=== PATIENT | male | born 1975 | race Caucasian/White ===

== ENCOUNTER 2016-11-16 21:48 | Emergency (ER) | payer MEDICAID ==
[~2016-11-16] VITALS: Ht 172.7 cm; Wt 67.2 kg
[2016-11-16 21:53] VITALS: Ht 172.7 cm; Wt 67.2 kg
[2016-11-16] MEDS ORDERED: DIPHTH/TET/ACEL PERTUSS (ADULT) 0.5 ML VIAL IM* ONE (23:00)
--- NOTE | 2016-11-16 23:07 | ERD ---
ER Documentation Chief Complaint Date/Time DATE: 11/16/16 TIME: 23:05 Chief Complaint HEAD LACK TO BACK TO HEAD FROM BASKETBALL DENIES KO HPI This is a 41-year-old male who was playing basketball when he got hit in the head with a basketball. There was no loss of consciousness. No vomiting. He is initially dizzy but no longer has dizziness. No photosensitivity or visual changes. Unsure last tetanus vaccination. Sustained a laceration to the posterior scalp. ROS All systems reviewed and are negative except as per history of present illness. Medications Home Meds Reported Medications [None] No Conflict Check 07/20/10 Allergies Allergies: Coded Allergies: No Known Allergies (Verified Allergy, Mild, 11/16/16) PMhx/Soc History of Surgery: No Anesthesia Reaction: No Hx Neurological Disorder: No Hx Respiratory Disorders: No Hx Cardiac Disorders: No Hx Psychiatric Problems: No Hx Miscellaneous Medical Probl: No Hx Alcohol Use: Yes (SOCIALLY.) Hx Substance Use: No Hx Tobacco Use: Yes (QUIT 13 YRS AGO.) Smoking Status: Never smoker FmHx Family History: No diabetes Physical Exam Vitals Vital Signs Date Time Temp Pulse Resp B/P Pulse Ox O2 Delivery O2 Flow Rate FiO2 11/16/16 21:53 98.1 69 18 124/83 100 Physical Exam General: well developed, well nourished, alert, nontoxic, no distress Head: normocephalic, atraumatic Neck: Supple, nontender, no lymphadenopathy, no midline tenderness Respiratory: Clear to auscaultation bilaterally, speaks in full sentences, no use of accesory muscles or labored breathing, no rales, ronchi, or wheezing Cardiovascular: RRR, No murmurs Back: no midline tenderness, no step offs or bony abnormalities, sensation to light touch in tact Extremities: moving all extremities normally, normal gait, no edema Skin: Posterior scalp laceration approximately 2 cm Results 24 hrs Current Medications Medications (Trade) Dose Ordered Sig/Patti Route PRN Reason Start Time Stop Time Status Last Admin Dose Admin Diphtheria/ Tetanus/Acell Pertussis (Adacel) 0.5 ml ONCE ONCE IM* 11/16/16 23:00 11/16/16 23:01 DC 11/16/16 23:00 Procedures/MDM 41-year-old presents after trauma to his head. His neurological examination is normal and he did not lose consciousness and is well-appearing. He has had no nausea or vomiting. I doubt he needs a CT scan. He does have a scalp laceration which was irrigated with normal saline and then 3 carrie were placed. Patient tolerated procedure well and there were no complications. He was given a tetanus vaccination I recommended 2 day wound check in 7-10 days for removal of sutures. Recommended this patient follow up with her primary care doctor within 48 hours or return to the emergency room for any worsening of symptoms. However this time I do believe there is suitable for outpatient management. I answered all their questions and they agreed with the plan and were discharged home. Departure Diagnosis: Primary Impression: Scalp laceration Condition: Stable Patient Instructions: Laceration, Scalp Additional Instructions: Llame al doctor CARLITOS y maicol saurav RADHA PARA DENTRO DE 1-2 JADE.Dgale a la secretaria que nosotros le instruimos hacer esta radha.Avise o llame si arthur condicin se empeora antes de la radha. Regresa aqui si peor o no mejor. MARY KAY PALMER PA-C November 16, 2016 23:07
[2016-11-16 23:23] VITALS: BP 128/73; PULSE 72; RESP 16
== END 2016-11-16 23:25 | disposition home or self-care (01) ==
LOC: FTE 21:48
DX: S01.01XA Laceration without foreign body of scalp, initial encounter (principal); W21.05XA Struck by basketball, initial encounter; Y92.310 Basketball court as the place of occurrence of the external cause; Z23 Encounter for immunization; Z87.891 Personal history of nicotine dependence
CPT/HCPCS: 12001; 90471; 90715; Z7502

== ENCOUNTER 2016-11-23 14:41 | Emergency (ER) | payer MEDICAID ==
[~2016-11-23] VITALS: Ht 170.2 cm; Wt 72.0 kg
[2016-11-23 14:49] VITALS: Ht 170.2 cm; Wt 72.0 kg
--- NOTE | 2016-11-23 15:17 | ERD ---
ER Documentation Chief Complaint Date/Time DATE: 11/23/16 TIME: 15:14 Chief Complaint STAPLE REMOVAL FROM HEAD HPI 41-year-old male presented ED today for removal of the suture on his head. He has sustained laceration on the occipital area he is head on 11/16/2016. Patient reports no complications. Denies fever or chills. Denies bleeding or wound drainage. Denies pain in his head. Denies lethargy or confusion. ROS All systems reviewed and are negative except as per history of present illness. Medications Home Meds Reported Medications [None] No Conflict Check 07/20/10 Allergies Allergies: Coded Allergies: No Known Allergies (Verified Allergy, Mild, 11/16/16) PMhx/Soc History of Surgery: No Anesthesia Reaction: No Hx Neurological Disorder: No Hx Respiratory Disorders: No Hx Cardiac Disorders: No Hx Psychiatric Problems: No Hx Miscellaneous Medical Probl: No Hx Alcohol Use: Yes (SOCIALLY.) Hx Substance Use: No Hx Tobacco Use: Yes (QUIT 13 YRS AGO.) Physical Exam Vitals Vital Signs Date Time Temp Pulse Resp B/P Pulse Ox O2 Delivery O2 Flow Rate FiO2 11/23/16 14:49 98.0 59 20 119/70 100 Physical Exam General: Patient is well-developed. Awake, alert, and conversant, in no apparent distress Skin: Warm and dry Head: Normocephalic, atraumatic without palpable deformities. 3 cecilia noted in the occipital region. Eyes: Pupils equal, round, and reactive to light. Extraocular movements intact. No periorbital ecchymosis or step-off Ears: Canals patent. Tympanic membranes are clear. No hartman sign. No hemotympanum Nose/face: Atraumatic. Facial bones are nontender to palpation and stable with attempts at manipulation Neck: No midline point tenderness, step-off, or deformity to firm palpation of posterior cervical spine. Trachea midline. Carotids equal. No masses. No JVD. Full range of motion of the neck without limitation or pain Chest: No surface trauma. Nontender without crepitus or deformity. No palpable subcutaneous air. Lungs have good tidal volume, lungs clear to auscultate bilaterally Heart: Regular rate and rhythm. No murmur, rub, or gallop Extremities: No surface trauma. Full range of motion without limitation or pain. Good strength in all extremities. Sensation to light touch intact. All peripheral pulses are intact and equal Neuro: Alert and oriented 4, GCS 15, cranial nerves II through XII intact. Motor and sensory exam is nonfocal. Reflexes are symmetric Procedures/MDM Staple Removal by me: Cecilia removed with staple remover without incident. Wound shows no evidence of infection, foreign body, neurologic injury, vascular injury, open joint or tendon laceration. Patient does not have any signs of intracranial hemorrhage or other brain injury. Patient to follow up PRN. Departure Diagnosis: Primary Impression: Encounter for removal of cecilia Condition: Good Patient Instructions: Staple Removal, No Complication [facility]errals: [facility] Usted se hilliard hecho un examen mdico de control que le indica que no est en saurav condicin que requiera tratamiento urgente en el Departamento de Emergencia. Un estudio ms profundo y el tratamiento de arthur condicin pueden esperar sin ningn riesgo hasta que usted sea atendida/o en el consultorio de arthur mdico o saurav cl soham. Es responsabilidad suya arreglar saurav radha para el seguimiento del brian. MANEJO DE CONDICIONES NO URGENTES EN EL FUTURO 1) Si usted tiene un mdico de atencin primaria: Usted debera llamar a arthur mdico de atencin primaria antes de venir al departamento de emergencia. Despus de las horas de consultorio, arthur doctor o arthur asociado/a est disponible por telfono. El mdico o enfermero de mayelin en el servicio telefnico puede asesorarle por bridget medio para atender el problema, o brian contrario se puede programar saurav radha. 2) Si usted no tiene un mdico de atencin primaria: Llame al mdico o clnica de referencia que aparece abajo nathen las horas de consultorio para hacer saurav radha para que le vean. CLINICAS: [facility] [phone] [facility] [phone] [facility] [phone] [facility] [phone] [facility] [phone] [address] [facility]. [phone] [address] Additional Instructions: Llame al doctor nombrado abajo (Referral Sources) MAANA y maicol saurav RADHA PARA DENTRO DE SAURAV SEMANA. Dgale a la secretaria que nosotros le instruimos hacer esta radha.Avise o llame si arthur condicin se empeora antes de la radha. REINIER LIVINGSTON. HOWARD Nov 23, 2016 15:17
== END 2016-11-23 15:14 | disposition home or self-care (01) ==
LOC: E/R 14:41
DX: Z48.02 Encounter for removal of sutures (principal); Z87.891 Personal history of nicotine dependence
CPT/HCPCS: 99281

== ENCOUNTER 2018-10-22 12:21 | Emergency (ER) | payer MEDICAID ==
[~2018-10-22] VITALS: Ht 175.3 cm; Wt 79.5 kg
[2018-10-22 12:26] VITALS: BP 139/77; PULSE 76; RESP 18; Ht 175.3 cm; Wt 79.5 kg
[2018-10-22] MEDS ORDERED: SOD CHLORIDE 0.9% 1,000 ML IV STA (12:28)
--- NOTE | 2018-10-22 12:32 | ERD ---
ER Documentation Chief Complaint Chief Complaint patient noted with left sided weakness HPI This a 43-year-old male who was last seen normal approximately 1 hour ago. The patient had gone into the bathroom and he said that he got dizzy and then started spitting, then he became weak on the left side and fell to the floor. He says he never lost consciousness. His brother went into the bathroom after the patient had been there for about 30 minutes and found him on the floor, with reported unconsciousness. Patient says he did not lose consciousness but the brother said he saw him unconscious. EMS arrived and their EKG showed possible STEMI however this is not the case when I reviewed the EKG. The patient is denying any headache denies any alcohol or drug use, he is complaining of motor weakness to the left side but says his sensation is intact. Last seen normal at approx 11:30 AM. ROS All systems reviewed and are negative except as per history of present illness. Medications Home Meds Discontinued Reported Medications [None] No Conflict Check 07/20/10 Allergies Allergies: Coded Allergies: No Known Allergies (Verified Allergy, Mild, 10/22/18) PMhx/Soc History of Surgery: No Anesthesia Reaction: No Hx Neurological Disorder: No Hx Respiratory Disorders: No Hx Cardiac Disorders: No Hx Psychiatric Problems: No Hx Miscellaneous Medical Probl: No Hx Alcohol Use: Yes (SOCIALLY.) Hx Substance Use: No Hx Tobacco Use: Yes (QUIT 13 YRS AGO.) FmHx Family History: No coronary disease Physical Exam Vitals Vital Signs Date Temp Pulse Resp B/P (MAP) Pulse Ox O2 O2 Flow FiO2 Time Delivery Rate 10/22/18 58 22 114/74 98 14:10 (87) 10/22/18 59 17 105/71 97 13:55 (82) 10/22/18 60 18 113/63 97 13:54 (80) 10/22/18 98.2 76 18 139/77 100 12:26 (97) 10/22/18 Nasal 2 12:25 Cannula Physical Exam Const: Well-developed, well-nourished Head: Atraumatic, normocephalic, smell of ETOH Eyes: Normal Conjunctiva, PERRLA, EOMI, normal sclera, no nystagmus ENT: Normal External Ears, Nose and Mouth, moist mucus membranes. Neck: Full range of motion. No meningismus, no lymphadenopathy. Resp: Clear to auscultation bilaterally, no wheezing, rhonchi, rales Cardio: Regular rate and rhythm, no murmurs, S1 S2 present Abd: Soft, non tender x 4, non distended. Normal bowel sounds, no guarding or rebound, no pulsitile abdominal masses or bruits Skin: No petechiae or rashes, no ecchymosis , no maculopapular rash Back: No midline or flank tenderness Ext: No cyanosis, or edema, FROM x 4, normal inspection, neurovascularly intact x 4 Neur: Awake and alert, left facial weakness, left upper extremity strength is 23/5, left lower extremity strength is 12/5, sensation is intact x4, he has no slurred speech, he is able to swallow without difficulty Psych: Normal Mood and Affect Result Diagram: 10/22/18 1256 10/22/18 1230 Results 24 hrs Laboratory Tests Test 10/22/18 12:30 10/22/18 12:56 Prothrombin Time 13.0 Sec Prothrombin Time Ratio 1.0 INR International Normalized Ratio 0.97 Activated Partial Thromboplast Time 23.3 Sec Sodium Level 145 mmol/L Potassium Level 4.3 mmol/L Chloride Level 108 mmol/L Carbon Dioxide Level 25 mmol/L Anion Gap 12 Blood Urea Nitrogen 12 mg/dl Creatinine 0.90 mg/dl Est Glomerular Filtrat Rate mL/min > 60 mL/min Glucose Level 97 mg/dl Hemoglobin A1c 5.2 % Calcium Level 9.1 mg/dl Creatine Kinase 93 IU/L Creatine Kinase Index 1.0 Creatinine Kinase MB (Mass) 0.93 ng/ml Troponin I < 0.012 ng/ml Triglycerides Level 100 mg/dl Cholesterol Level 144 mg/dl LDL Cholesterol, Calculated 74 mg/dl HDL Cholesterol 50 mg/dl Cholesterol/HDL Ratio 2.8 RATIO Ethyl Alcohol Level 93.0 mg/dl White Blood Count 8.5 10^3/ul Red Blood Count 4.32 10^6/ul Hemoglobin 13.0 g/dl Hematocrit 39.2 % Mean Corpuscular Volume 90.7 fl Mean Corpuscular Hemoglobin 30.1 pg Mean Corpuscular Hemoglobin Concent 33.2 g/dl Red Cell Distribution Width 12.7 % Platelet Count 264 10^3/UL Mean Platelet Volume 10.2 fl Immature Granulocytes % 0.600 % Neutrophils % 72.5 % Lymphocytes % 19.1 % Monocytes % 6.2 % Eosinophils % 1.2 % Basophils % 0.4 % Nucleated Red Blood Cells % 0.0 /100WBC Immature Granulocytes # 0.050 10^3/ul Neutrophils # 6.2 10^3/ul Lymphocytes # 1.6 10^3/ul Monocytes # 0.5 10^3/ul Eosinophils # 0.1 10^3/ul Basophils # 0.0 10^3/ul Nucleated Red Blood Cells # 0.0 10^3/ul Current Medications Medications Dose Sig/Patti Start Time Status Last (Trade) Ordered Route PRN Stop Time Admin Dose Reason Admin Sodium 1,000 ml @ Q1H STAT 10/22/18 DC 10/22/18 Chloride 1,000 mls/hr IV 12:28 10/22/18 12:54 13:27 IV Flush 10 ml STK-MED 10/22/18 DC (NS 10 ml) ONCE .ROUTE 12:36 10/22/18 12:37 Sodium 100 ml @ ud STK-MED 10/22/18 DC Chloride ONCE .ROUTE 12:36 10/22/18 12:37 Iohexol 100 ml @ ud STK-MED 10/22/18 DC ONCE .ROUTE 12:36 10/22/18 12:37 Alteplase, 6.6 mg BOLUS OVER 1 10/22/18 DC Recombinant MIN ONCE 13:30 10/22/18 (Activase) IV* 13:31 Alteplase, 59.1 mg ISCHEMIC 10/22/18 DC Recombinant STROKE ONCE 13:30 10/22/18 (Activase) IV* 13:31 Sodium 50 ml @ 0 FLUSH AFTER 10/22/18 DC Chloride mls/hr TPA ONCE IV 13:30 10/22/18 13:31 Procedures/MDM EKG: Rate/Rhythm: Normal Sinus Rhythm,NL intervals QRS, ST, QT: NORMAL OK, QRS, QT] Impression: NORMAL EKG Patient: MAYTE MATHIS : 1975 Age: 43 Sex: M MR #: [id number] DOS: 10/22/18 1228 Ordering MD: WILMER GRIGGS DO Location: E/R Room/Bed: PROCEDURE: CT Brain without contrast CLINICAL INDICATION: Patient experiencing possible Stroke TECHNIQUE: A CT of the brain was performed on multidetector high-resolution CT scanner utilizing axial sections from the skull base through the vertex without contrast. The scan was reviewed in soft tissue brain and high frequency resolution bone algorithm windows. Images were reviewed on a high-resolution PACS workstation. DICOM images are available. CTDI (mGy): 39.63 mGy and DLP(mGy-cm): 634.23 mGy.cm One or more of the following dose reduction techniques were used: - Automated exposure control. - Adjustment of the mA and/or kV according to patient size. Use of iterative reconstruction technique. COMPARISON: None available FINDINGS: The ventricles and sulci are symmetric and normal in size and morphology. There is no evidence of intracranial hemorrhage, mass effect, edema or midline shift. No abnormal intra-axial or extra-axial fluid collections are seen. The density of the brain is normal and the castellon/white matter differentiation is well preserved. Brainstem and posterior fossa structures are equally unremarkable. The osseous structures and visualized paranasal sinuses are unremarkable. The surrounding soft tissue scalp and bony calvarium are intact and normal. IMPRESSION: 1. No CT evidence of acute intracranial findings including hemorrhage, midline shift, herniation and mass effect. 2. Symmetric appearance with preservation of the castellon-white matter distinction on CT. In the proper clinical setting, further brain MRI imaging can be performed to enhance detection for acute early ischemia, potentially occult on CT imaging. Please also refer to separate CT angiogram report to follow. These findings were discussed with ED physician Wilmer Bender at 10/22/2018 12:50:23 PM. RPTAT: EE Physician Margo Date Time Electronically viewed and signed by Physician Margo on 10/22/2018 12:55 BP/ CC: WILMER GRIGGS DO [id number] Patient: MAYTE MATHIS : 1975 Age: 43 Sex: M MR #: [id number] DOS: 10/22/18 1228 Ordering MD: WILMER GRIGGS DO Location: E/R Room/Bed: PROCEDURE: XR Chest. CLINICAL INDICATION: Possible stroke TECHNIQUE: Single portable view of the chest was obtained. COMPARISON: None. FINDINGS: Cardiac/vascular structures: Normal cardiomediastinal silhouette. Pulmonary: Lungs are clear. No pleural effusion. No evidence of pneumothorax. Osseous structures: Normal Soft tissues: Normal IMPRESSION: No acute cardiopulmonary disease. RPTAT:AAJJ Physician Hank Date Time Electronically viewed and signed by Vani Colon Physician on 10/22/2018 12:57 MH/ CC: WILMER GRIGGS DO [id number] @ 1322 - Spoke w Dr Reagan of Neuro and she reviewed the CTA and sees a clot of the M1 branch of the R MCA and to give TPA and transfer the patient out for intervention @ 1327 spoke to [place] transfer (closer than [facility] - and verified w Zuleyka the hotel recreational facilities manager) - will get IR to call me and arranging ambulance transfer @[phone] transfer team loading up patient Critical Care Time: 45 minutes Treatments/Evaluations: Close monitoring and treatment of unstable vital signs, cardiorespiratory, and neurologic status, while maintaining tight balance of fluid, respiratory, and cardiac interventions. This time includes discussing the case with the patient and the patient's family. This time does not include all procedures stated elsewhere in this record. This time also includes reviewing old records, labs and radiological studies. This time includes examining and re- examining the patient. Additionally, this time also includes arranging care with admitting and consulting physicians. Departure Diagnosis: Primary Impression: Acute CVA (cerebrovascular accident) Condition: Stable WILMER GRIGGS DO October 22, 2018 12:32
[2018-10-22] MEDS ORDERED: SOD CHLORIDE 0.9% 100 ML ONE (12:36)
[2018-10-22] MEDS ORDERED: IOHEXOL 100 ML ONE (12:36)
[2018-10-22] MEDS ORDERED: SOD CHLORIDE 0.9% 50 ML IV ONE (13:30)
[2018-10-22] MEDS ORDERED: ALTEPLASE 100 MG INJ IV* ONE (13:30)
[2018-10-22] MEDS ORDERED: ALTEPLASE (tPA) 1 MG/ML BOLUS SYG IV* ONE (13:30)
--- NOTE | 2018-10-22 13:30 | STROKE ---
Date/Time of Note Date/Time of Note DATE: 10/22/18 TIME: 13:24 Patient Information General Patient location: emergency Arrival Date Age 43 Gender male Weight 73 kg Vital Signs Vital Signs Vital Signs Date Temp Pulse Resp B/P (MAP) Pulse Ox O2 O2 Flow FiO2 Time Delivery Rate 10/22/18 98.2 76 18 139/77 100 12:26 (97) 10/22/18 Nasal 2 12:25 Cannula Patient History Current Medications Allergies: Coded Allergies: No Known Allergies (Verified Allergy, Mild, 10/22/18) Labs Coagulation Labs: Coagulation Test 10/22/18 12:30 History & Physical Patient History Notes Pt Hx Reviewed History of Present Illness 43yo M last normal at 9:30am per but brother says last normal is 11:30am. Patient reports he became dizzy and left sided weakness, and salivating alot and fell on the floor. Found by brother unconscious. Review of Systems Constitutional: no symptoms reported EENTM: no symptoms reported Respiratory: no symptoms reported Cardiovascular: no symptoms reported Gastrointestinal: no symptoms reported Genitourinary: no symptoms reported Musculoskeletal: no symptoms reported Skin: no symptoms reported Psychiatric/Neurological: no symptoms reported NIH Stroke Scale NIH Stroke Scale [id number] l4d LOC Questions: Owbsl3z OC Commands: Fvxqw0z t Gaze: Egekg4r al: Nsbrx5d ial Palsy: Amgql5y tor Arm - Left: Qgbjg7b - Right: Lyfma3g eft: Uvidw6h - Right: Lllry1j Efepc4i Fnvqz8g est Language: Mwoyc6i vanesa: Bsndz9l Jglpl4i dlhr5St Total Score: Vqaxe8c te/Time Recorded DATE: 10/22/18 TIME: 13:24 Submitted By Rachel Alarcon t-PA Imaging Review Imaging Reviewed: Yes Date/Time Imaging Reviewed DATE: 10/22/18 TIME: 13:[address] Head no acute changes; CTA of the head and neck- right M1 occlusion t-PA Administration Recommendation: Yes Weight 73 kg t-PA Recommendation Date/Time 10/22/18 13:09 Recommedation submitted by Rachel Alarcon Recommendations Impression Diagnosis right MCA ischemic stroke Recommendation 43yo M presents with acute onset left sided weakness and syncope. Neurological exam is notable for right gaze preference, left face, arm and leg flaccid paralysis, left face, arm, and leg numbness, left homonymous hemianopsia, and left hemineglect. I believe the patient is having an acute ischemic stroke. I discussed the risks, benefits, and alternatives of IV TPA in detail with the patient who is agreeable to my recommendation for IV TPA.I recommend post-TPA orders be followed. I recommend blood pressure be maintained less than 180/105. Stat CTA of the head and neck was completed prior to my interview and exam and I reviewed the images- patient has M1 occlusion of the right MCA and is thus a neurointerventional candidate. Patient is to be transferred to a [facility]. I recommend further workup include MRI Brain without gadolinium and transthoracic echocardiogram. Xyapa5Rr Post t-PA Order Pbcrl0q Document q15 min vitals recommendation: Document q15 min neuro checks Document q15 min bleeding checks Refer to t-PA Order Sets Qwwcr3Gn Diagnostic Labs: Flrlq3e Lipid Proile Hgb A1C CMP CBC w/Diff Coags Urinaysis [id number] Diagnostic Workup: Wizel1j Document q15 min neuro checks Uhbvw4Ak Therapy: Fkxcm1l Physical Therapy Speech Therapy Occupational Therapy Qoygp4Ee Counts Include [facility] Recommendations: Mfdyc5b Bedside Swallow Evaluation Pnumatic Compression Devices Avoid Figueroa Catheter Stroke Education Smoking Education RACHEL ALARCON October 22, 2018 13:30
== END 2018-10-22 14:25 | disposition short-term general hospital (02) ==
LOC: E/R 12:21
DX: I63.50 Cerebral infarction due to unspecified occlusion or stenosis of unspecified cerebral artery (principal); R40.2142 Coma scale, eyes open, spontaneous, at arrival to emergency department; R40.2362 Coma scale, best motor response, obeys commands, at arrival to emergency department; R40.2252 Coma scale, best verbal response, oriented, at arrival to emergency department; Z87.891 Personal history of nicotine dependence
CPT/HCPCS: 70450; 70496; 70498; 71045; 80048; 80061; 80307; 82550; 82553; 83036; 84484; 85025; 85610; 85730; 93005; J2997; J7030; Q9967; Z7502; Z7610

== ENCOUNTER 2018-10-31 23:15 | Emergency (ER) | payer MEDICAID ==
[~2018-10-31] VITALS: Ht 175.3 cm; Wt 67.5 kg
[2018-10-31 23:24] VITALS: Ht 175.3 cm; Wt 67.5 kg
[2018-11-01] MEDS ORDERED: TRAM50TA2 PO (05:55)
--- NOTE | 2018-11-01 05:58 | ERD ---
ER Documentation Chief Complaint Chief Complaint C/O LOWER MOLAR PAIN SINCE THIS AM HPI 43-year-old male who presents with complaint of lower left-sided molar toothache. States symptoms started around last night and worsened this morning. He otherwise denies abscess in mouth, drainage from tooth, bleeding from mouth. Informed patient that he likely needs tooth extraction and patient expressing understanding and advised to make a follow-up with dentist. Patient asking for pain medications at the time of evaluation. He otherwise nontoxic-appearing with normal triage vital signs. ROS All systems reviewed and are negative except as per history of present illness. Medications Home Meds Active Scripts Tramadol HCl (Tramadol HCl) 50 Mg Tablet, 50 MG PO Q6 PRN for PAIN, #20 TAB Prov:ORV[place]LE [place] PA-C 11/01/18 Allergies Allergies: Coded Allergies: No Known Allergies (Verified Allergy, Mild, 10/22/18) PMhx/Soc History of Surgery: No Anesthesia Reaction: No Hx Neurological Disorder: No Hx Respiratory Disorders: No Hx Cardiac Disorders: No Hx Psychiatric Problems: No Hx Miscellaneous Medical Probl: No Hx Alcohol Use: Yes ([employer]) Hx Substance Use: No Hx Tobacco Use: Yes (QUIT 15 YEARS AGO) Smoking Status: Former smoker Physical Exam Vitals Vital Signs Date Temp Pulse Resp B/P (MAP) Pulse Ox O2 O2 Flow FiO2 Time Delivery Rate 10/31/18 97.5 52 18 117/68 100 23:24 (84) Physical Exam Const: No acute distress Head: Atraumatic Eyes: Normal Conjunctiva ENT: Normal External Ears, Nose and Mouth. Left-sided mouth molar tooth a ppearing impacted, no evidence of abscess no drainage or bleeding from tooth Neck: Full range of motion. No meningismus. Resp: Clear to auscultation bilaterally Cardio: Regular rate and rhythm, no murmurs Abd: Soft, non tender, non distended. Normal bowel sounds Skin: No petechiae or rashes Back: No midline or flank tenderness Ext: No cyanosis, or edema Neur: Awake and alert Psych: Normal Mood and Affect Procedures/MDM 43-year-old male presents with left lower molar toothache. Patient has no evidence of abscess in mouth requiring drainage. He denies have evidence of systemic infection. He is afebrile with normal triage vital signs. Informed patient that he needs to follow-up with a dentist in order to to be evaluated for possible tooth extraction. Will discharge with appropriate follow-up instructions, strict return precautions, appropriate pain medications. DISPOSITION PLAN: We discussed follow up with the patient's primary care doctor within 24 to 48 hours. Patient counseled regarding my diagnostic impression and care plan. Prior to discharge all questions answered. Pt agrees with treatment plan and understands strict return precautions. Precautionary instructions provided including instructions to return to the ER if not improving or for any worsening or changing symptoms or concerns. Disclaimer: Inadvertent spelling and grammatical errors are likely due to EHR/dictation software use and do not reflect on the overall quality of patient care. Also, please note that the electronic time recorded on this note does not necessarily reflect the actual time of the patient encounter. Departure Diagnosis: Primary Impression: Toothache Condition: Stable Patient Instructions: Dental Pain Referrals: [facility] (PCP) [facility] ([facility] walk in clinic) Additional Instructions: Call your primary care doctor TOMORROW for an appointment during the next 2-3 days.See the doctor sooner or return here if your condition worsens before your appointment time. Usted necesita ser visto por un dentista ya que necesita saurav extraccin dental. Por favor, maicol un seguimiento con arthur mdico regular para saurav derivacin o llame a saurav de las clnicas enumeradas. ORVILLE NJ PA-C November 01, 2018 05:58
[2018-11-01 06:10] VITALS: BP 93/52; PULSE 53; RESP 18
== END 2018-11-01 06:10 | disposition home or self-care (01) ==
LOC: FTE 23:15
DX: K08.89 Other specified disorders of teeth and supporting structures (principal); Z87.891 Personal history of nicotine dependence
CPT/HCPCS: 99283

== ENCOUNTER 2018-11-23 21:57 | Emergency (ER) | payer SELFPAY ==
[~2018-11-23] VITALS: Wt 67.3 kg
[~2018-11-23 21:57] MED LIST: TRAM50TA2 PO
[2018-11-23 22:30] VITALS: BP 139/74; PULSE 55; RESP 18
== END 2018-11-24 00:24 | disposition left against medical advice (07) ==
LOC: FTE 21:57
DX: Z53.21 Procedure and treatment not carried out due to patient leaving prior to being seen by health care provider (principal)